=== PATIENT | female | born 1970 | race African-American/Black ===

== ENCOUNTER 2021-04-18 06:38 | Inpatient (IN) | payer SELFPAY ==
[2021-04-18] MEDS ORDERED: cefTRIAXone\\ROCEPHIN 500 MG VIAL ONE (07:06)
[2021-04-18] MEDS ORDERED: Acetaminophen 325 MG TAB ONE (07:06)
[2021-04-18] MEDS ORDERED: Diltiazem 125 MG/25 ML ONE (07:21)
[2021-04-18 07:27] LABS: #Basophils 0.1 thou/uL (0.0-0.2); #Lymphocytes 2.8 thou/uL (1.20-3.40); #Monocytes 0.9 thou/uL (0.11-0.59); #Neutrophils 6.3 thou/uL (1.40-6.50); %Basophils 0.7 % (0.0-1.0); %Eosinophils 0.5 % (0.0-10.0); %Lymphocytes 27.8 % (21.0-51.0); %Monocytes 8.7 % (0.0-10.0); %Neutrophils 62.3 % (42.0-75.0); Hemoglobin 14.4 g/dL (12.0-16.0); Mean Corpuscular HGB CONC 33.8 g/dL (32.0-36.0); Mean Corpuscular Hemoglobin 35.4 pg (27.0-31.0); Mean Platelet Volume 7.9 fL (7.4-10.4); Platelet Count 170 thou/uL (130-400); RBC Distribution Width 12.6 % (11.5-14.5); Red Blood Cell (RBC) Count 4.06 mill/uL (4.20-5.40); White Blood Cell (WBC) Count 10.1 thou/uL (4.8-10.8)
[2021-04-18 07:39] LABS: ALT (SGPT) 16 U/L (8-55); AST (SGOT) 27 U/L (5-34); Albumin 4.1 g/dL (3.5-5.0); Alkaline Phosphatase 115 U/L (40-110); Anion Gap 15 mmol/L (10-20); BUN (Urea Nitrogen) 8 mg/dL (9.8-20.1); Calc. Creatinine Clearance 0 mL/min (70-130); Calcium 9.6 mg/dL (7.8-10.44); Carbon Dioxide 20 mmol/L (22-29); Chloride 103 mmol/L (98-107); Globulin 4.3 g/dL (2.4-3.5); Glucose 135 mg/dL (70-105); Magnesium 1.6 mg/dL (1.6-2.6); Potassium 3.7 mmol/L (3.5-5.1); Protein, Total 8.4 g/dL (6.0-8.3); Sodium 134 mmol/L (136-145)
[2021-04-18] MEDS ORDERED: Magnesium 2 GM/50 ML BAG (IN WATER) ONE (08:11)
[2021-04-18] MEDS ORDERED: cefOXitin Sodium/Dextrose 2 GM/50 ML BAG ONE (08:12)
[2021-04-18] MEDS ORDERED: cefTRIAXone\\ROCEPHIN 2 GM VIAL ONE (08:14)
[2021-04-18] MEDS ORDERED: Albuterol 200 PUFF (6.7GM INHALER) ONE (08:25)
[2021-04-18 08:32] LABS: SARS-CoV-2 NAA Rapid Test Not Detected (NotDetected)
[2021-04-18] MEDS ORDERED: Enoxaparin Sodium 100 MG/ML SYRINGE ONE (09:41)
[2021-04-18] MEDS ORDERED: Diltiazem 125 MG in Sodium Chloride 0.9% 100 ML IVPB SCH (10:30)
[2021-04-18] MEDS: Nicotine 14 MG PATCH TD SCH (13:50)
[2021-04-18 14:08] LABS: Troponin I 0.014 ng/mL (< 0.028)
[2021-04-18] MEDS: Azithromycin 500 MG in Sodium Chloride 0.9% 250 ML 250 ML IVPB SCH (14:10)
[2021-04-18 16:16] VITALS: BMI 24.0
[2021-04-18] MEDS ORDERED: FLU VACC QS2021-22(6MOS UP)/PF 60 MCG/0.5 ML SYRINGE IM ONE (17:15)
[2021-04-18] MEDS ORDERED: Aspirin 81 mg Enteric Coated Tablet PO SCH (19:30)
[2021-04-18] MEDS: Metoprolol Tartrate 25 MG TAB PO SCH (20:18)
[2021-04-18] MEDS: Enoxaparin Sodium 80 MG/0.8 ML SYRINGE SC SCH (20:18)
[2021-04-19 05:36] LABS: #Basophils 0.1 thou/uL (0.0-0.2); #Eosinphils 0.1 thou/uL (0.0-0.7); #Lymphocytes 2.7 thou/uL (1.20-3.40); #Monocytes 0.6 thou/uL (0.11-0.59); #Neutrophils 3.3 thou/uL (1.40-6.50); %Eosinophils 1.2 % (0.0-10.0); %Lymphocytes 39.2 % (21.0-51.0); %Monocytes 9.5 % (0.0-10.0); %Neutrophils 49.1 % (42.0-75.0); Hemoglobin 12.8 g/dL (12.0-16.0); Mean Corpuscular HGB CONC 34.4 g/dL (32.0-36.0); Mean Corpuscular Hemoglobin 36.4 pg (27.0-31.0); Mean Platelet Volume 8.2 fL (7.4-10.4); Platelet Count 156 thou/uL (130-400); RBC Distribution Width 12.6 % (11.5-14.5); Red Blood Cell (RBC) Count 3.52 mill/uL (4.20-5.40); White Blood Cell (WBC) Count 6.8 thou/uL (4.8-10.8)
[2021-04-19 05:53] LABS: Anion Gap 10 mmol/L (10-20); BUN (Urea Nitrogen) 5 mg/dL (9.8-20.1); Calc. Creatinine Clearance 105 mL/min (70-130); Calcium 9.1 mg/dL (7.8-10.44); Carbon Dioxide 24 mmol/L (22-29); Chloride 104 mmol/L (98-107); Glucose 98 mg/dL (70-105); Potassium 3.4 mmol/L (3.5-5.1); Sodium 135 mmol/L (136-145)
[2021-04-19] MEDS ORDERED: cefTRIAXone\\ROCEPHIN 1 GM in Sodium Chloride 0.9% 100 ML IVPB SCH (08:00)
[2021-04-19] MEDS: Acetaminophen 325 MG TAB PO PRN ×2 (08:20→18:56)
[2021-04-19] MEDS: Enoxaparin Sodium 80 MG/0.8 ML SYRINGE SC SCH ×2 (09:40→20:10)
[2021-04-19] MEDS: Metoprolol Tartrate 25 MG TAB PO SCH ×2 (09:40→20:11)
[2021-04-19] MEDS: Aspirin 81 mg Enteric Coated Tablet PO SCH (09:40)
[2021-04-19] MEDS: Nicotine 14 MG PATCH TD SCH (12:53)
[2021-04-19] MEDS: Azithromycin 500 MG in Sodium Chloride 0.9% 250 ML 250 ML IVPB SCH (14:15)
[2021-04-19] MEDS ORDERED: Potassium Chloride 20 MEQ TAB PO SCH (18:45)
[2021-04-20 04:54] LABS: #Eosinphils 0.1 thou/uL (0.0-0.7); #Lymphocytes 2.5 thou/uL (1.20-3.40); #Monocytes 0.5 thou/uL (0.11-0.59); #Neutrophils 2.8 thou/uL (1.40-6.50); %Basophils 0.5 % (0.0-1.0); %Eosinophils 1.6 % (0.0-10.0); %Lymphocytes 42.7 % (21.0-51.0); %Monocytes 8.3 % (0.0-10.0); %Neutrophils 46.9 % (42.0-75.0); Hemoglobin 13.2 g/dL (12.0-16.0); Mean Corpuscular HGB CONC 34.6 g/dL (32.0-36.0); Mean Corpuscular Hemoglobin 36.4 pg (27.0-31.0); Platelet Count 168 thou/uL (130-400); RBC Distribution Width 12.4 % (11.5-14.5); Red Blood Cell (RBC) Count 3.62 mill/uL (4.20-5.40); White Blood Cell (WBC) Count 5.9 thou/uL (4.8-10.8)
[2021-04-20 05:06] LABS: Anion Gap 9 mmol/L (10-20); BUN (Urea Nitrogen) 6 mg/dL (9.8-20.1); Calc. Creatinine Clearance 102 mL/min (70-130); Calcium 9.6 mg/dL (7.8-10.44); Carbon Dioxide 26 mmol/L (22-29); Chloride 106 mmol/L (98-107); Glucose 102 mg/dL (70-105); Potassium 3.5 mmol/L (3.5-5.1); Sodium 137 mmol/L (136-145)
[2021-04-20] MEDS: Metoprolol Tartrate 25 MG TAB PO SCH ×2 (09:32→21:35)
[2021-04-20] MEDS: Acetaminophen 325 MG TAB PO PRN (09:32)
[2021-04-20] MEDS: Aspirin 81 mg Enteric Coated Tablet PO SCH (09:32)
[2021-04-20] MEDS: Enoxaparin Sodium 80 MG/0.8 ML SYRINGE SC SCH ×2 (09:32→21:35)
[2021-04-20] MEDS: Nicotine 14 MG PATCH TD SCH (10:10)
[2021-04-21 09:01] LABS: #Eosinphils 0.1 thou/uL (0.0-0.7); #Lymphocytes 2.2 thou/uL (1.20-3.40); #Monocytes 0.5 thou/uL (0.11-0.59); #Neutrophils 2.5 thou/uL (1.40-6.50); %Basophils 0.8 % (0.0-1.0); %Eosinophils 2.2 % (0.0-10.0); %Lymphocytes 40.4 % (21.0-51.0); %Monocytes 9.5 % (0.0-10.0); %Neutrophils 47.2 % (42.0-75.0); Hemoglobin 13.6 g/dL (12.0-16.0); Mean Corpuscular Hemoglobin 35.9 pg (27.0-31.0); Mean Platelet Volume 7.8 fL (7.4-10.4); Platelet Count 197 thou/uL (130-400); RBC Distribution Width 12.3 % (11.5-14.5); Red Blood Cell (RBC) Count 3.78 mill/uL (4.20-5.40); White Blood Cell (WBC) Count 5.3 thou/uL (4.8-10.8)
[2021-04-21] MEDS: Aspirin 81 mg Enteric Coated Tablet PO SCH (09:12)
[2021-04-21] MEDS: Enoxaparin Sodium 80 MG/0.8 ML SYRINGE SC SCH ×2 (09:13→19:57)
[2021-04-21] MEDS: Metoprolol Tartrate 25 MG TAB PO SCH ×2 (09:13→19:57)
[2021-04-21] MEDS: MULTIVIT/IRON SULF/FOLIC ACID 1 EACH TAB PO SCH ×2 (09:16→10:11)
[2021-04-21 09:17] LABS: Anion Gap 13 mmol/L (10-20); BUN (Urea Nitrogen) 5 mg/dL (9.8-20.1); Calc. Creatinine Clearance 95 mL/min (70-130); Calcium 9.6 mg/dL (7.8-10.44); Carbon Dioxide 23 mmol/L (22-29); Chloride 105 mmol/L (98-107); Glucose 92 mg/dL (70-105); Potassium 3.6 mmol/L (3.5-5.1); Sodium 137 mmol/L (136-145)
[2021-04-21] MEDS: Nicotine 14 MG PATCH TD SCH (12:47)
[2021-04-22] MEDS: Acetaminophen 325 MG TAB PO PRN (00:50)
[2021-04-22 05:23] LABS: #Basophils 0.1 thou/uL (0.0-0.2); #Eosinphils 0.2 thou/uL (0.0-0.7); #Lymphocytes 2.8 thou/uL (1.20-3.40); #Monocytes 0.5 thou/uL (0.11-0.59); #Neutrophils 2.4 thou/uL (1.40-6.50); %Basophils 0.9 % (0.0-1.0); %Eosinophils 3.1 % (0.0-10.0); %Lymphocytes 46.8 % (21.0-51.0); %Monocytes 7.9 % (0.0-10.0); %Neutrophils 41.4 % (42.0-75.0); Hemoglobin 13.6 g/dL (12.0-16.0); Mean Corpuscular HGB CONC 33.4 g/dL (32.0-36.0); Mean Corpuscular Hemoglobin 35.2 pg (27.0-31.0); Platelet Count 208 thou/uL (130-400); RBC Distribution Width 12.3 % (11.5-14.5); Red Blood Cell (RBC) Count 3.86 mill/uL (4.20-5.40); White Blood Cell (WBC) Count 5.9 thou/uL (4.8-10.8)
[2021-04-22 05:39] LABS: Anion Gap 13 mmol/L (10-20); BUN (Urea Nitrogen) 8 mg/dL (9.8-20.1); Calc. Creatinine Clearance 94 mL/min (70-130); Calcium 9.7 mg/dL (7.8-10.44); Carbon Dioxide 22 mmol/L (22-29); Chloride 105 mmol/L (98-107); Glucose 101 mg/dL (70-105); Potassium 3.6 mmol/L (3.5-5.1); Sodium 136 mmol/L (136-145)
[2021-04-22] MEDS: Enoxaparin Sodium 80 MG/0.8 ML SYRINGE SC SCH ×2 (09:09→20:15)
[2021-04-22] MEDS: Metoprolol Tartrate 25 MG TAB PO SCH ×2 (09:10→20:15)
[2021-04-22] MEDS: Aspirin 81 mg Enteric Coated Tablet PO SCH (09:10)
[2021-04-22] MEDS: MULTIVIT/IRON SULF/FOLIC ACID 1 EACH TAB PO SCH (11:14)
[2021-04-22] MEDS: Nicotine 14 MG PATCH TD SCH (11:15)
[2021-04-22] MEDS ORDERED: PROPOFOL 0 ML ONE (12:50)
[2021-04-22] MEDS ORDERED: Lidocaine 2% PF 100 mg/5 ml Syringe ONE (12:50)
[2021-04-22] MEDS ORDERED: Lidocaine 1% PF 5 ML VIAL ONE (12:52)
[2021-04-22] MEDS ORDERED: PROPOFOL 200 MG/20 ML VIAL ONE (12:52)
[2021-04-22] MEDS ORDERED: PROPOFOL 20 ML ONE (12:56)
[2021-04-23 04:48] LABS: #Basophils 0.1 thou/uL (0.0-0.2); #Eosinphils 0.2 thou/uL (0.0-0.7); #Lymphocytes 2.8 thou/uL (1.20-3.40); #Monocytes 0.5 thou/uL (0.11-0.59); #Neutrophils 2.6 thou/uL (1.40-6.50); %Basophils 1.4 % (0.0-1.0); %Eosinophils 2.8 % (0.0-10.0); %Lymphocytes 45.6 % (21.0-51.0); %Monocytes 8.4 % (0.0-10.0); %Neutrophils 41.9 % (42.0-75.0); Hemoglobin 13.6 g/dL (12.0-16.0); Mean Corpuscular Hemoglobin 35.3 pg (27.0-31.0); Mean Platelet Volume 7.9 fL (7.4-10.4); Platelet Count 210 thou/uL (130-400); RBC Distribution Width 12.2 % (11.5-14.5); Red Blood Cell (RBC) Count 3.86 mill/uL (4.20-5.40); White Blood Cell (WBC) Count 6.2 thou/uL (4.8-10.8)
[2021-04-23 05:09] LABS: Anion Gap 11 mmol/L (10-20); BUN (Urea Nitrogen) 8 mg/dL (9.8-20.1); Calc. Creatinine Clearance 88 mL/min (70-130); Calcium 9.6 mg/dL (7.8-10.44); Carbon Dioxide 26 mmol/L (22-29); Chloride 106 mmol/L (98-107); Glucose 99 mg/dL (70-105); Potassium 3.6 mmol/L (3.5-5.1); Sodium 139 mmol/L (136-145)
[2021-04-23] MEDS: Nicotine 14 MG PATCH TD SCH (08:48)
[2021-04-23] MEDS: Metoprolol Tartrate 25 MG TAB PO SCH (09:59)
[2021-04-23] MEDS: Aspirin 81 mg Enteric Coated Tablet PO SCH (09:59)
[2021-04-23] MEDS: MULTIVIT/IRON SULF/FOLIC ACID 1 EACH TAB PO SCH (09:59)
[2021-04-23] MEDS: Enoxaparin Sodium 80 MG/0.8 ML SYRINGE SC SCH (10:00)
[2021-04-23 18:08] VITALS: BP 168/58; TEMP 97.8
== END 2021-04-23 16:37 | disposition home or self-care (01) | DRG 308 ==
LOC: ERS 06:38 → ERHOLD 09:35 → 2NO 16:08
PROVIDERS: ADMIT Internal Medicine; ATTEND Hospitalist
PROC: B24BZZ4 Ultrasonography of Heart with Aorta, Transesophageal (ICD-10-PCS; principal; 2021-04-22)
DX: I48.91 Unspecified atrial fibrillation (principal); J18.9 Pneumonia, unspecified organism; E87.1 Hypo-osmolality and hyponatremia; Z20.822 Contact with and (suspected) exposure to COVID-19; Z23 Encounter for immunization; I48.92 Unspecified atrial flutter; F17.210 Nicotine dependence, cigarettes, uncomplicated; I70.0 Atherosclerosis of aorta; I08.3 Combined rheumatic disorders of mitral, aortic and tricuspid valves; Z71.6 Tobacco abuse counseling
CPT/HCPCS: 36415; 71045; 80048; 80053; 83605; 83735; 83880; 84443; 84484; 85025; 87040; 90471; 90732; 93005; 93306; 93312; 94664; 94760; 96365; 96366; 96367; 96368; 96372; 96376; G0009; J0456; J0694; J0696; J1650; J2001; J2704; J3475; J3490; J7050; U0002